=== PATIENT | female | born 1950 | race Caucasian/White ===

== ENCOUNTER → 2018-03-20 12:27 | Outpatient (CLI) | payer MEDICARE, SELFPAY ==
--- NOTE | 2018-03-20 | DI.RAD.S_ITS ---
PROCEDURE: XR CHEST 2V INDICATIONS: COUGH TECHNIQUE: 2 views of the chest were acquired. COMPARISON: None. FINDINGS: Surgical changes and devices: None. Lungs and pleura: No pleural effusions or pneumothorax. Lungs are clear. Mediastinum: Mediastinal contours are normal. Heart size is normal. Bones and chest wall: No suspicious bony abnormalities. Moderate kyphosis with multilevel degenerative disc disease. Slight anterior wedging T11. Soft tissues appear unremarkable. IMPRESSION: No acute cardiopulmonary abnormality Dictated by: Jared Quach M.D. on 03/20/2018 at 12:59 Approved by: Jared Quach M.D. on 03/20/2018 at 13:00
== END ==
PROVIDERS: PCP Physician Assistant; Visit Provider Physician Assistant
DX: R05 Cough (principal); J45.909 Unspecified asthma, uncomplicated; J41.0 Simple chronic bronchitis
CPT/HCPCS: 71046

== ENCOUNTER → 2018-04-11 11:58 | Outpatient (CLI) | payer MEDICARE, SELFPAY ==
--- NOTE | 2018-04-14 15:57 | PM.PFT.1 ---
Pulmonary Function Test Referral & Results Date Patient Seen: 04/11/18 Requesting provider: China Osuna Results: The spirometry demonstrates an FVC of 2.56 L which is 76% of predicted. The FEV1 was measured at 1.96 L which is 77% of predicted. The FEV1/FVC ratio was 77 which is 99% of predicted. Following the administration of bronchodilator there was no appreciable change. Lung volumes show an SVC of 2.83 L which is 90% of predicted. The diffusing capacity was measured at 35.13 which is 130% of predicted. The maximum voluntary ventilation was reduced. Interpretation: This study demonstrates mild to moderate obstructive lung disease without evidence of benefit following bronchodilator administration.
== END ==
PROVIDERS: PCP Physician Assistant; Visit Provider Physician Assistant
DX: J45.909 Unspecified asthma, uncomplicated (principal); J41.0 Simple chronic bronchitis
CPT/HCPCS: 94010; 94060; 94726; 94729

== ENCOUNTER → 2018-07-24 09:06 | Outpatient (CLI) | payer MEDICARE, SELFPAY ==
--- NOTE | 2018-07-24 09:11 | DI.ECHO.S_ITS ---
[place] [facility]---------+ [facility] +---------+ : : [address] : : : : [id number] : : : : Phone: [phone]+ Echocardiogram Report + + :Name: ZAY LALA Study Date: 07/24/2018 Height: 66 in : :[facility] Exam Location: IS Weight: 142 lb : : Gender: Female BSA: 1.7 m2 : :: 1950 Age: 68 yrs BP: 150/88 mmHg: :Reason For Study: CHRONIC COUGH : : Performed By: Turner Lynn : :Referring: JASMINA ARROYO : + + Interpretation Summary The echocardiogram is within normal limits. Procedure: A two-dimensional transthoracic echocardiogram with color flow and Doppler was performed. The study quality was technically adequate. There is no prior echocardiogram noted for this patient. The patient was in normal sinus rhythm during the exam. Left Ventricle: The left ventricle is normal in size. There is normal left ventricular wall thickness. The ejection fraction is estimated to be 60-65%. There are no focal wall motion abnormalities. Right Ventricle: The right ventricle is normal in size and function. Atria: The left atrium is moderately dilated. Right atrial size is normal. The interatrial septum is intact with no evidence for an atrial septal defect. Mitral Valve: The mitral valve is normal in structure and function. There is mild mitral regurgitation. Aortic Valve: The aortic valve is normal in structure and function. The aortic valve is trileaflet. The aortic valve opens well. No aortic regurgitation is present. Tricuspid Valve: The tricuspid valve is normal in structure and function. There is mild to moderate tricuspid regurgitation. The right ventricular systolic pressure is estimated to be at least 48 mmHg based on an estimated right atrial pressure of 3 mm Hg. Pulmonic Valve: The pulmonic valve is normal in structure and function. There is no pulmonic valvular regurgitation. Great Vessels: The aortic root is normal size. The dimensions of the ascending aorta are normal. The pulmonary artery is normal size. The IVC is of normal diameter and collapses greater than 50% with a sniff. This suggests a low right atrial pressure of 3 mm Hg. Pericardium/ Pleura There is no pericardial effusion. There is no pleural effusion. MMode/2D Measurements & Calculations LVIDd: 4.0 cm Ao root diam: 2.5 cm LVIDs: 2.6 cm Aortic Jxn: 2.1 cm FS: 33.8 % asc Aorta Diam: 3.0 cm EPSS: 0.23 cm Ao Arch Diam (Prox Trans): 2.5 cm IVSd: 0.92 cm LVPWd: 0.91 cm LV steen. diameter/BSA (cm/m^2): 2.3 LV sys. diameter/BSA (cm/m^2): 1.5 LA dimension: 4.1 cm RA long axis: 4.7 cm LA A2 area: 21.9 cm2 RA area: 15.8 cm2 LA A4 area: 26.4 cm2 RA vol: 45.3 ml LA length (vol): 6.0 cm RA : 26.2 ml/m2 LA vol: 81.8 ml IVC diam: 1.5 cm LA vol index: 47.3 ml/m2 Doppler Measurements & Calculations Ao V2 max: 150.8 cm/sec LVOT Max Mikhail: 114.6 cm/sec Ao V2 mean: 106.7 cm/sec LV V1 max P.3 mmHg Ao max P.1 mmHg LV V1 VTI: 26.4 cm Ao mean P.9 mmHg sev ratio: 0.81 Ao V2 VTI: 32.5 cm MV E max mikhail: 133.1 cm/sec TR max mikhail: 335.4 cm/sec MV A max mikhail: 111.1 cm/sec TR max P.0 mmHg MV E/A: 1.2 PA V2 max: 92.8 cm/sec Med Peak E' Mikhail: 8.3 cm/sec PA V2 mean: 65.3 cm/sec E/E' med: 16.1 PA mean P.0 mmHg Lat Peak E' Mikhail: 10.4 cm/sec PA pr(Accel): 19.1 mmHg E/E' lat: 12.8 PA Accel Time: 0.11 sec E/e' average: 14.4 MV dec time: 0.14 sec Pulm A Revs Mikhail: 24.0 cm/sec Reading Physician:04:14 PM
--- NOTE | 2018-07-24 09:12 | DI.RAD.S_ITS ---
PROCEDURE: FL BARIUM SWALLOW INDICATIONS: CHRONIC COUGH COMPARISON: None. FINDINGS: Function: There is decreased and delayed esophageal peristalsis. Spontaneous mild gastroesophageal reflux seen involving the lower third of the esophagus. Morphology: Air-contrast images demonstrate normal mucosal morphology. Single contrast views show no esophageal strictures, extrinsic mass effects, or diverticula. Trace hiatal hernia. IMPRESSION: Esophageal dysmotility Mild spontaneous gastroesophageal reflux noted. Trace hiatal hernia Dictated by: Dragan Mendes M.D. on 07/24/2018 at 12:47 Approved by: Dragan Mendes M.D. on 07/24/2018 at 12:49
[2018-07-24 11:24] LABS: Alanine Aminotransferase 25 IU/L (9-52); Albumin Globulin Ratio 1.4 (1.0-2.8); Alkaline Phosphatase 101 U/L (38-126); Aspartate Aminotransferase 24 IU/L (14-36); BUN Creatinine Ratio 17.5 (6-22); Bilirubin Total 0.4 mg/dL (0.2-1.3); Blood Urea Nitrogen 14 mg/dL (7-17); Carbon Dioxide 29 mmol/L (22-32); Chloride 104 mmol/L (98-107); Cholesterol 210 mg/dL (140-199); Estimated Glomerular Filt Rate > 60.0 mL/min (>60); Globulin 2.8 g/dL (1.7-4.1); Glucose 86 mg/dL (80-110); HDL Cholesterol 74 mg/dL (40-60); HEMOLYSIS < 15 (0-50); LDL Cholesterol Calculated 120 mg/dL (<100); Potassium 3.9 mmol/L (3.4-5.1); Sodium 143 mmol/L (137-145); Total Protein 6.8 g/dL (6.3-8.2); Triglycerides 81 mg/dL (35-150)
== END ==
PROVIDERS: PCP Internal Medicine; Visit Provider Internal Medicine
DX: I08.1 Rheumatic disorders of both mitral and tricuspid valves (principal); K22.4 Dyskinesia of esophagus; K21.9 Gastro-esophageal reflux disease without esophagitis; R05 Cough; I10 Essential (primary) hypertension; F32.9 Major depressive disorder, single episode, unspecified
CPT/HCPCS: 36415; 74220; 80053; 80061; 93306

== ENCOUNTER → 2019-06-18 13:34 | Outpatient (CLI) | payer MEDICARE, SELFPAY ==
--- NOTE | 2019-06-18 | DI.CT.S_ITS ---
PROCEDURE: CT CHEST WO CON INDICATIONS: Cough TECHNIQUE: Noncontrast 5 mm thick sections acquired from the pulmonary apices to the posterior costophrenic angles. 1 mm lung window, 5 mm thick coronal and sagittal and 7 mm axial MIP reformats were then acquired. For radiation dose reduction, the following was used: automated exposure control, adjustment of mA and/or kV according to patient size. COMPARISON: [facility], CR, XR CHEST 2V, 03/20/2018, 12:13. FINDINGS: Image quality: Excellent. Lungs and pleura: No acute air space opacities. No pleural effusions or pneumothorax. Central and peripheral airways are patent and normal in caliber. Mediastinum: Heart size is normal. Coronary artery calcifications are seen. No pericardial effusion. No mediastinal adenopathy by size criteria. Thoracic aorta and central pulmonary arteries are normal in size. Esophagus is normal in caliber. There is a small hiatal hernia. Bones and chest wall: No suspicious bony lesions. Age-appropriate bony degenerative changes are seen. Accentuated thoracic kyphosis is seen. A few scattered calcified granulomas are seen. No vertebral body compression fractures. No axillary or supraclavicular adenopathy by size criteria. Thyroid gland demonstrates no significant noncontrast abnormality. Abdomen: Visualized upper abdominal solid organs and bowel loops appear normal in the absence of contrast. IMPRESSION: No infiltrates are seen. No acute abnormality can be seen. Incidental note is made of: Coronary artery calcification Prior granulomatous exposure. Small hiatal hernia Dictated by: Francis Alvarez M.D. on 06/18/2019 at 15:35 Approved by: Francis Alvarez M.D. on 06/18/2019 at 15:37
== END ==
PROVIDERS: PCP Internal Medicine; Visit Provider Internal Medicine
DX: R05 Cough (principal); I25.10 Atherosclerotic heart disease of native coronary artery without angina pectoris; K44.9 Diaphragmatic hernia without obstruction or gangrene; M40.204 Unspecified kyphosis, thoracic region
CPT/HCPCS: 71250